=== PATIENT | male | born 1980 | race Caucasian/White ===

== ENCOUNTER 2022-03-17 11:48 | Inpatient (IN) | payer OTHER, SELFPAY ==
--- NOTE | 2022-03-17 | ECG_ITS ---
Test Reason : MED CLEARANCE Blood Pressure : / mmHG Vent. Rate : 070 BPM Atrial Rate : 070 BPM P-R Int : 128 ms QRS Dur : 078 ms QT Int : 410 ms P-R-T Axes : -16 026 016 degrees QTc Int : 442 ms Sinus rhythm with Premature atrial complexes Otherwise normal ECG No previous ECGs available Referred By: Jared Garcia Electronically Signed By:DAYANA BENDER
--- NOTE | ~2022-03-17 | XR_ITS ---
EXAMINATION: XR ANKLE, RIGHT CLINICAL INFORMATION: Fall, pain COMPARISON: None TECHNIQUE: AP, lateral, and mortise views of the right ankle. FINDINGS: The bones and soft tissues are normal. No fracture. Alignment is anatomic. Joint spaces are maintained. No joint effusion. And old corticated medial malleolar avulsion fracture is noted. XR/XR ankle RT min 3V IMPRESSION: No acute fracture or subluxation of the right ankle.
--- NOTE | 2022-03-17 12:02 | ED.GENADULT ---
HPI - General Adult General Chief complaint: Psychiatric Symptoms Stated complaint: Si Time Seen by Provider: 03/17/22 12:02 Source: patient and EMS Mode of arrival: EMS Limitations: no limitations History of Present Illness HPI narrative: Patient is a 41 year old male presenting to the emergency department today after a suicide attempt on a section 12. Patient states that he is no longer suicidal however, he is very sad. Patient denies any dizziness, lightheadedness, abdominal pain, nausea, vomiting, fever, chills, blurry vision, double vision, loss of vision, chest pain, difficulty breathing, shortness of breath, back pain, night sweats, pain with urination, increased urinary frequency, increased urinary urgency, blood in his urine or stool, syncope or a near syncopal episode, recent trauma or falls, bowel incontinence, bladder incontinence, bowel retention, bladder retention, or any other complaints at this time. Onset (ago): hour(s) Severity: mild Severity scale (1-10): 3 Relieving factors: none Exacerbating factors: none Associated symptoms: denies other symptoms Treatments prior to arrival: none Related Data Home Medications Medication Instructions Recorded Confirmed albuterol sulfate 90 mcg/actuation 1 puff inhalation Q4H PRN Wheezing 03/17/22 03/17/22 aerosol inhaler omeprazole 20 mg capsule,delayed 1 cap PO BID heartburn 03/17/22 03/17/22 release Allergies Allergy/AdvReac Type Severity Reaction Status Date / Time ibuprofen [From Motrin] AdvReac Nausea and Verified 03/17/22 12:42 Vomiting Review of Systems Constitutional: Constitutional: Reports no additional constitutional complaints, Denies chills, Denies fever(s) and Denies night sweats Eyes: Eyes: Reports no additional eye complaints, Denies blurry vision, Denies change in vision, Denies diplopia, Denies eye discharge, Denies loss of vision and Denies eye pain ENT: Denies dizziness Cardiovascular: Cardiovascular: Reports no additional cardiovascular complaints, Denies chest pain, Denies lightheadedness, Denies Loss of Consciousness and Denies dyspnea Respiratory: Respiratory: Reports no additional respiratory complaints and Denies dyspnea Gastrointestinal: Gastrointestinal: Reports no additional gastrointestinal complaints, Denies abdominal pain, Denies melena, Denies hematochezia, Denies change in bowel habits and Denies change in stool character Genitourinary: Genitourinary: Reports no additional male genitourinary complaints, Denies hematuria, Denies oliguria, Denies difficulty urinating, Denies dysuria, Denies urinary frequency, Denies urinary hesitancy, Denies urinary incontinence and Denies urinary urgency Musculoskeletal: Musculoskeletal: Reports no additional musculoskeletal complaints, Denies numbness and Denies tingling Neurologic: Denies dizziness, Denies loss of vision, Denies numbness and Denies tingling Psychiatric: Psychiatric: Reports depression Endocrine: Endocrine: Reports no additional endocrine complaints Hematologic/Lymphatic: Hematologic/Lymphatic: Reports no additional hematologic/lymphatic complaints Allergic/Immunologic: Allergic/Immunologic: Reports no additional allergic/immunologic complaints PMFSH Past Medical History Attestation statement: The following information was validated with the patient. Source: old records reviewed Social History Social History Alcohol intake: current Alcohol intake frequency: holidays/special occasions only Patient Tobacco Use Status: Current everyday Tobacco user Use of substances other than those prescribed or required for medical reasons: Yes Substance Use Type: Crack/Cocaine Advance Directives: No Physical Exam ED Vital Signs: Vital Signs - 24 hr 03/17/22 12:04 03/17/22 13:58 Temperature 97.8 F Pulse Rate 102 H Respiratory Rate 16 16 Blood Pressure 141/87 H Pulse Oximetry 95 Oxygen Delivery Method Room Air BMI result Body Mass Index 30.8 Const General: cooperative, no acute distress, alert and awake Nutritional Appearance: well nourished Orientation/consciousness: patient oriented x3 Limitations: no limitations [facility] Head: Yes normal to inspection and Yes atraumatic Ears: hearing grossly normal bilaterally and external ears normal General nose exam: Normal external nose present, no nasal discharge noted and no epistaxis Face and sinus: Yes normal facial exam, No abrasion and No laceration Mouth: Normal oral and palatal mucosa present, no drooling and no muffled voice Eyes General: appearance normal, both eyes and all related structures Periorbital: periorbital findings normal Eyelids: Yes eyelids normal Conjunctivae: conjunctivae normal Pupils: Equal, round and reactive pupils present EOM: EOMs intact bilaterally Neck Neck: Yes normal visual inspection, Yes full ROM and Yes no lymphadenopathy Chest Chest palpation & inspection: normal inspection of the chest Resp Effort & Inspection: normal respiratory effort and able to speak in complete sentences Auscultation: clear to auscultation bilaterally Cardio Rate: regular rate Rhythm: regular rhythm GI Inspection: Yes normal to inspection Neuro General: patient oriented x3 and moves all extremities Cranial nerves: Yes Equal, round and reactive pupils present Cognition (Neuro): normal cognition Motor exam (neuro): 5/5 motor strength present throughout Sensory Exam: Normal double simultaneous stimulation for sensation Coordination: [id number] test normal Extrem General: Yes normal to inspection, Yes full ROM and Yes capillary refill normal Psych Appearance: grossly normal Mental Status: mental status grossly normal Speech and movement: Normal speech and movement present Affect: Sad affect present Attitude: cooperative Thought process: Normal thought process present Thought content: Depressive thoughts present Insight: Good insight present (Psych) Medical Decision Making MDM Narrative Medical decision making narrative: Patient is a 41 year old male presenting to the emergency department today with depression. Patient's physical exam showed profound soundness and the patient was very tearful throughout the entire examination and interview. Patient's blood work was unremarkable. Patient did complain of some right ankle pain after my initial examination. Patient's right ankle x-ray showed no acute process. I explained my physical exam findings as well as all test results to the patient. I answered all questions asked by the patient. Patient is pending bed placement in a psychiatric facility. Patient may possibly be admitted here. Patient remains on a section 12. Differential Diagnosis Differential Diagnosis: depression, SI Medical Records Medical records reviewed: Yes I reviewed the patient's medical records. Lab Data Lab results reviewed: Yes I reviewed the patient's lab results. Result diagrams: 03/17/22 13:23 03/17/22 13:24 Labs: Lab Results 03/17/22 03/17/22 03/17/22 Range/Units 12:45 13:00 13:23 WBC 7.1 (4.8-10.8) X10*3/uL RBC 5.59 (4.60-5.80) X10*6/uL Hgb 16.7 (14.0-18.0) g/dl Hct 48.2 (42.0-52.0) % MCV 86.2 (80.0-98.0) fL MCH 29.9 (27.0-33.0) pg MCHC 34.6 (31.0-36.0) g/dl RDW 12.8 (11.0-16.0) % Plt Count 249 (160-400) X10*3/uL MPV 9.4 (9.4-12.4) fL Immature Gran % (Auto) 0.1 (0.0-0.4) % Neut % (Auto) 59.7 (45-73) % Lymph % (Auto) 32.5 (20-40) % [place] % (Auto) 6.7 (2-11) % Eos % (Auto) 0.7 (0-4) % Baso % (Auto) 0.3 (0-2) % Lymph # (Auto) 2.3 (1.2-4.9) X10*3/uL [place] # (Auto) 0.5 (0.1-1.2) X10*3/uL Eos # (Auto) 0.1 (0.0-0.4) X10*3/uL Baso # (Auto) 0.0 (0.0-0.2) X10*3/uL Abs Immat Gran (auto) 0.01 (0.00-0.03) X10*3/uL Absolute Neuts (auto) 4.3 (2.0-8.3) x10*3/uL Absolute Nucleated RBC 0.000 (0.0-0.012) X10*3/uL Nucleated RBC % (auto) 0.0 (0.0-0.2) /100WBC Sodium (135-145) mmol/L Potassium (3.3-5.1) mmol/L Chloride (96-108) mmol/L Carbon Dioxide (22-29) mmol/L Anion Gap (12-20) BUN (9-16) mg/dL Creatinine (0.5-1.4) mg/dL Estim Creat Clear Calc Estimated GFR Random Glucose (60-115) mg/dL Calcium (8.4-10.2) mg/dL Total Bilirubin (0.0-1.0) mg/dL AST (5-37) U/L ALT (0-40) U/L Alkaline Phosphatase (39-117) U/L Total Protein (6.5-8.0) g/dL Albumin (3.5-5.0) g/dL Salicylates (15-30) mg/dL Urine Opiates Screen Not Detected (Not Detect) Urine Fentanyl Screen Not Detected (Not Detect) Acetaminophen (<30) mcg/mL Ur Barbiturates Screen Not Detected (Not Detect) Ur Phencyclidine Scrn Not Detected (Not Detect) Ur Amphetamines Screen Not Detected (Not Detect) U Benzodiazepines Scrn Not Detected (Not Detect) Urine Cocaine Screen POSITIVE H (Not Detect) U Marijuana (THC) Screen Not Detected (Not Detect) Ethyl Alcohol mg/dL COVID-19 (MARIANA) Negative (Negative) COVID-19 Clin Com See Note 03/17/22 Range/Units 13:24 WBC (4.8-10.8) X10*3/uL RBC (4.60-5.80) X10*6/uL Hgb (14.0-18.0) g/dl Hct (42.0-52.0) % MCV (80.0-98.0) fL MCH (27.0-33.0) pg MCHC (31.0-36.0) g/dl RDW (11.0-16.0) % Plt Count (160-400) X10*3/uL MPV (9.4-12.4) fL Immature Gran % (Auto) (0.0-0.4) % Neut % (Auto) (45-73) % Lymph % (Auto) (20-40) % [place] % (Auto) (2-11) % Eos % (Auto) (0-4) % Baso % (Auto) (0-2) % Lymph # (Auto) (1.2-4.9) X10*3/uL [place] # (Auto) (0.1-1.2) X10*3/uL Eos # (Auto) (0.0-0.4) X10*3/uL Baso # (Auto) (0.0-0.2) X10*3/uL Abs Immat Gran (auto) (0.00-0.03) X10*3/uL Absolute Neuts (auto) (2.0-8.3) x10*3/uL Absolute Nucleated RBC (0.0-0.012) X10*3/uL Nucleated RBC % (auto) (0.0-0.2) /100WBC Sodium 137 (135-145) mmol/L Potassium 3.7 (3.3-5.1) mmol/L Chloride 101 (96-108) mmol/L Carbon Dioxide 22 (22-29) mmol/L Anion Gap 18 (12-20) BUN 7 L (9-16) mg/dL Creatinine 0.96 (0.5-1.4) mg/dL Estim Creat Clear Calc 117.4 Estimated GFR > 60 Random Glucose 133 H (60-115) mg/dL Calcium 9.4 (8.4-10.2) mg/dL Total Bilirubin 0.5 (0.0-1.0) mg/dL AST 32 (5-37) U/L ALT 44 H (0-40) U/L Alkaline Phosphatase 119 H (39-117) U/L Total Protein 8.0 (6.5-8.0) g/dL Albumin 5.1 H (3.5-5.0) g/dL Salicylates < 5.0 L (15-30) mg/dL Urine Opiates Screen (Not Detect) Urine Fentanyl Screen (Not Detect) Acetaminophen < 1 (<30) mcg/mL Ur Barbiturates Screen (Not Detect) Ur Phencyclidine Scrn (Not Detect) Ur Amphetamines Screen (Not Detect) U Benzodiazepines Scrn (Not Detect) Urine Cocaine Screen (Not Detect) U Marijuana (THC) Screen (Not Detect) Ethyl Alcohol 137 mg/dL COVID-19 (MARIANA) (Negative) COVID-19 Clin Com Imaging Data Right ankle x-ray: Attestation: I personally reviewed and interpreted this imaging study as follows: My impression: No acute process. Radiologist's impression: EXAMINATION: XR ANKLE, RIGHT CLINICAL INFORMATION: Fall, pain? COMPARISON: None? TECHNIQUE: AP, lateral, and mortise views of the right ankle. FINDINGS: The bones and soft tissues are normal. No fracture. Alignment is anatomic. Joint spaces are maintained. No joint effusion. And old corticated medial malleolar avulsion fracture is noted. XR/XR ankle RT min 3V IMPRESSION: No acute fracture or subluxation of the right ankle. Dictated By: Kenji Yates MD Signed By: Electronically signed by Kenji Yates MD 03/17/22 2823 Discharge Plan Discharge Clinical Impression: Depression, Suicidal ideation Patient Disposition: Still a Patient Prescriptions: No Action omeprazole 20 mg capsule,delayed release(DR/EC) 1 cap PO BID albuterol sulfate 90 mcg/actuation Hfa Aerosol Inhaler 1 puff INHALATION Q4H PRN (Reason: Wheezing)
[2022-03-17 12:03] VITALS: BP 150/100; PULSE 105; O2SAT 95
[2022-03-17 12:04] VITALS: BP 141/87; PULSE 102; RESP 16; TEMP 36.6; O2SAT 95; BMI 30.8
--- NOTE | 2022-03-17 12:30 | PC.NURSE ---
PT SEEN IN COMMUNITY BY Jourdan. PT IS A BED SEARCH.
[2022-03-17] MEDS: NaPROXEN 500 MG TABLET PO (12:52)
[2022-03-17] MEDS: LORazepam 1 MG TABLET 2 MG PO (12:53)
[2022-03-17 13:09] LABS: Amphetamine Screen Urine Not Detected (Not Detect); Barbiturates, Urine Not Detected (Not Detect); Benzodiazepines Screen Urine Not Detected (Not Detect); Cannabinoid Screen Urine Not Detected (Not Detect); Cocaine Screen Urine POSITIVE (Not Detect); Fentanyl, urine Not Detected (Not Detect); Opiate Screen Urine Not Detected (Not Detect); Phencyclidine Screen Urine Not Detected (Not Detect)
[2022-03-17 13:22] LABS: COVID-19 Test Negative (Negative)
[2022-03-17 13:29] LABS: MANUAL DIFF FLAG NO
[2022-03-17 13:35] LABS: Basophils Percent Auto 0.3 % (0-2); Eosinophils Absolute Auto 0.1 X10*3/uL (0.0-0.4); Eosinophils Percent Auto 0.7 % (0-4); Hematocrit 48.2 % (42.0-52.0); Hemoglobin 16.7 g/dl (14.0-18.0); Imm Gran Abs Auto 0.01 X10*3/uL (0.00-0.03); Imm Gran Pct Auto 0.1 % (0.0-0.4); Lymphocytes Absolute Auto 2.3 X10*3/uL (1.2-4.9); Lymphocytes Percent Auto 32.5 % (20-40); Mean Corpuscular HGB Conc 34.6 g/dl (31.0-36.0); Mean Corpuscular Hemoglobin 29.9 pg (27.0-33.0); Mean Corpuscular Volume 86.2 fL (80.0-98.0); Mean Platelet Volume 9.4 fL (9.4-12.4); Monocytes Absolute Auto 0.5 X10*3/uL (0.1-1.2); Monocytes Percent Auto 6.7 % (2-11); Neutrophils Absolute Auto 4.3 x10*3/uL (2.0-8.3); Neutrophils Percent Auto 59.7 % (45-73); Platelet Count 249 X10*3/uL (160-400); Red Blood Count 5.59 X10*6/uL (4.60-5.80); Red Cell Distribution Width 12.8 % (11.0-16.0); White Blood Count 7.1 X10*3/uL (4.8-10.8)
[2022-03-17 13:48] LABS: Acetaminophen LAB < 1 mcg/mL (<30); Alanine Aminotransferase 44 U/L (0-40); Albumin Level 5.1 g/dL (3.5-5.0); Alkaline Phosphatase 119 U/L (39-117); Anion Gap 18 (12-20); Aspartate Amino Transferase 32 U/L (5-37); Bilirubin Total 0.5 mg/dL (0.0-1.0); Blood Urea Nitrogen 7 mg/dL (9-16); Calcium 9.4 mg/dL (8.4-10.2); Carbon Dioxide 22 mmol/L (22-29); Chloride 101 mmol/L (96-108); Creatinine Clr Calc Pharmacy 117.4; Estimated Glomerular Filt Rate > 60; Ethanol 137 mg/dL; Glucose Random 133 mg/dL (60-115); Potassium 3.7 mmol/L (3.3-5.1); Salicylate < 5.0 mg/dL (15-30); Sodium 137 mmol/L (135-145)
[2022-03-17] MEDS: Butalb/Acetamin/Caff 50/325/40 TABLET 1 TAB PO (13:57)
[2022-03-17 13:58] VITALS: RESP 16
--- NOTE | 2022-03-17 15:01 | PHA.MEDREC ---
Pharmacy Consult ? Medication Reconciliation Pharmacy has completed the medication reconciliation. Patient reported medications. Ana Lilia Zuniga, RachelD
--- NOTE | 2022-03-17 15:02 | PC.NURSE ---
SIERRA FROM [facility] CALLED AND STATE THAT THIS PT IS TO GO TO [facility] SOMETIME TODAY.
--- NOTE | 2022-03-17 22:00 | PC.ADMIT ---
Addendum entered by Page Cruz RN 03/18/22 20:49: Pt reports using cocaine once before admission in an attempt to relieve pain. Denies other substance use, social drinking, no THC. Original Note: Pt is 41M admitted after SA by hanging, pt denies actual attempt and states he self-aborted before taking action after thinking of his and kids. He states he was feeling overwhelmed by multiple stressors at home as well as chronic pain issues. Pt is irritable, soft-spoken with minimal responses. Denies hx of inpatient psychiatric care, has an outpt counselor, and no psych meds/med provider. Pt states he does not need to be here and is upset about having to have a roommate and no TV in his room. He was provided a 3-day notice to sign and educated on how to navigate inpatient stays/legal aspects/etc. He denies SI/HI/AVH/SIB. Declined to sign VLADIMIR for PCP but did sign for , pharmacy, and counselor.
[2022-03-17 22:03] VITALS: BP 144/94; PULSE 94; RESP 18; TEMP 36.6; O2SAT 96
[2022-03-18 06:00] VITALS: BP 147/93; PULSE 83; RESP 16; TEMP 36.2; O2SAT 97
[2022-03-18] MEDS: Acetaminophen 325 MG TABLET 650 MG PO (08:44)
[2022-03-18] MEDS: Nicotine Polacrilex 2 MG GUM BUCCAL ×3 (09:07→16:42)
[2022-03-18] MEDS: Omeprazole 20 MG CAPSULE.DR PO (09:08)
--- NOTE | 2022-03-18 12:15 | P.HPPS_ITS ---
HPI Date of Service: 03/18/22 Chief Complaint: Si Sources of Information: patient interviewed, chart reviewed and crisis/core team assessment reviewed HPI Subjective Notes: Lopez Warning and Conditional Voluntary Healthcare Proxy: No Guardianship: No Medical Problems Affecting Mental Status: No Narrative: Guillermo is a 41 y.o. male who carries a dx of MDD recurrent, cocaine use disorder. He [place] [facility], accompanied by his OP therapist, on 03/17/22 due to suicidal ideation with plan to hang himself. Per [facility] crisis eval, pt did attempt to hang himself, however pt denies that he this and said he planned to but stopped himself. No imaging done in the ED, no ligature tsai. Precipitating factors include that being unable to work due to chronic pain, on SSDI. Pt uses cocaine 2x per week, last used prior to coming to the ED, utox positive for cocaine only, no alcohol abuse. I evaluate the pt this afternoon and upon interview he reports he is at the hospital due to SI with a plan to hang himself, however says he thought of his son age 3 and stopped himself. Pt reports long hx of depression since childhood, says sx are intermittent and I feel good now. Identifies precipitating factors as missing his oldest kids, has not seen them in 3 years, as they live in [place], [place] with their bio mom. Also says he is bored, always home. Pt endorses anxiety, I got anxiety all the time, hx of panic attacks, unable to identify triggers. Pt denies agitation or aggression other than irritability if he does not have a cigarette. Hx of using Chantix with success x 2-3 months. Says sleep is poor due to chronic pain, i.e. fibromyalgia, arthritis, neck spasms. During the day his energy depends on his activity level. Pt says he does not like medication and will sniff cocaine when im in pain to numb my body. Past Psychiatric History: -Pt has OP psych services, therapist is Anoop Tejeda at [facility]. No psych provider. -Past med trials: gabapentin (lack of efficacy) -Hx of IPLOC at [facility] in 1997 for depression Medical Evaluation Reviewed: Yes [facility] Narrative: -Pt has chronic pain due to neuropathy, neck spasms, fibromyalgia, arthritis, a herniated disc in his back, hx of pancreatic surgery (?), and a recent sprained ankle.? Family History: -Depression. Social History: -Pt has three kids with his current of 17 yrs (she is a nu rse), and two children with another woman. -Has SSDI, in past worked as a link, construction, atv mechanic Substance History: -Cocaine: Pt uses 2x/week via insufflation, last used 03/17/2022 -Alcohol: social use Diagnostics Vital Signs (24Hr): Vital Signs - 24 hr 03/17/22 13:58 03/17/22 22:03 Temperature 97.9 F Pulse Rate 94 Respiratory Rate 16 18 Blood Pressure 144/94 H Pulse Oximetry 96 Oxygen Delivery Method Room Air BMI result Body Mass Index 30.8 Labs Results: 03/17/22 13:23 03/17/22 13:24 Labs: Laboratory Results - last 48 hr 03/17/22 03/17/22 03/17/22 12:45 13:00 13:23 WBC 7.1 RBC 5.59 Hgb 16.7 Hct 48.2 MCV 86.2 MCH 29.9 MCHC 34.6 RDW 12.8 Plt Count 249 MPV 9.4 Immature Gran % (Auto) 0.1 Neut % (Auto) 59.7 Lymph % (Auto) 32.5 [place] % (Auto) 6.7 Eos % (Auto) 0.7 Baso % (Auto) 0.3 Lymph # (Auto) 2.3 [place] # (Auto) 0.5 Eos # (Auto) 0.1 Baso # (Auto) 0.0 Abs Immat Gran (auto) 0.01 Absolute Neuts (auto) 4.3 Absolute Nucleated RBC 0.000 Nucleated RBC % (auto) 0.0 Sodium Potassium Chloride Carbon Dioxide Anion Gap BUN Creatinine Estim Creat Clear Calc Estimated GFR Random Glucose Calcium Total Bilirubin AST ALT Alkaline Phosphatase Total Protein Albumin Salicylates Urine Opiates Screen Not Detected Urine Fentanyl Screen Not Detected Acetaminophen Ur Barbiturates Screen Not Detected Ur Phencyclidine Scrn Not Detected Ur Amphetamines Screen Not Detected U Benzodiazepines Scrn Not Detected Urine Cocaine Screen POSITIVE H U Marijuana (THC) Screen Not Detected Ethyl Alcohol COVID-19 ([facility]) Negative COVID-19 Clin Com See Note 03/17/22 13:24 WBC RBC Hgb Hct MCV MCH MCHC RDW Plt Count MPV Immature Gran % (Auto) Neut % (Auto) Lymph % (Auto) [place] % (Auto) Eos % (Auto) Baso % (Auto) Lymph # (Auto) [place] # (Auto) Eos # (Auto) Baso # (Auto) Abs Immat Gran (auto) Absolute Neuts (auto) Absolute Nucleated RBC Nucleated RBC % (auto) Sodium 137 Potassium 3.7 Chloride 101 Carbon Dioxide 22 Anion Gap 18 BUN 7 L Creatinine 0.96 Estim Creat Clear Calc 117.4 Estimated GFR > 60 Random Glucose 133 H Calcium 9.4 Total Bilirubin 0.5 AST 32 ALT 44 H Alkaline Phosphatase 119 H Total Protein 8.0 Albumin 5.1 H Salicylates < 5.0 L Urine Opiates Screen Urine Fentanyl Screen Acetaminophen < 1 Ur Barbiturates Screen Ur Phencyclidine Scrn Ur Amphetamines Screen U Benzodiazepines Scrn Urine Cocaine Screen U Marijuana (THC) Screen Ethyl Alcohol 137 COVID-19 ([facility]NA) COVID-19 Clin Com Imaging Radiology Impressions: ITS Impressions Ankle X-Ray 03/17/22 13:48 IMPRESSION: No acute fracture or subluxation of the right ankle. Meds/Allergies Meds Home Medications Medication Instructions Recorded Confirmed Type albuterol sulfate 90 mcg/actuation 1 puff inhalation Q4H PRN Wheezing 03/17/22 03/17/22 History aerosol inhaler omeprazole 20 mg capsule,delayed 1 cap PO BID heartburn 03/17/22 03/17/22 History release Allergies Allergies Allergy/AdvReac Type Severity Reaction Status Date / Time ibuprofen [From Motrin] AdvReac Nausea and Verified 03/17/22 12:42 Vomiting Mental Status Exam Mental Status Exam Narrative: A&O. Well groomed, casual attire, overweight. Good eye contact, attentive. No Tics or Tremors. No abnormal involuntary movements. Calm, cooperative, engaged, pleasant. Non-pressured speech, spontaneous with regular rate and rhythm, normal volume and prosody. No prolonged speech latency or dysarthria. Mood is ?better,? affect is euthymic. May be minimizing sx, however in behavioral control, appropriate, not labile. Denies SI/SIB/HI upon inquiry. Denies A/VH or delusional thought content. Thoughts are coherent, organized. No known cognitive or memory impairment. Insight/ Judgment fair and adequate. Assessment & Plan Assessment & Plan (1) MDD (major depressive disorder), recurrent episode, moderate: Status: Acute Code(s): F33.1 - Major depressive disorder, recurrent, moderate (2) Cocaine use disorder: Status: Acute Code(s): F14.10 - Cocaine abuse, uncomplicated Plan Guillermo is a 41 y.o. male who carries a dx of MDD recurrent, cocaine use disorder. He presented [place] [facility] [place], accompanied by his OP therapist, on 03/17/22 due to suicidal ideation with plan to hang himself. Per [facility] crisis eval, pt did attempt to hang himself, however pt denies that he this and said he planned to but stopped himself. No imaging done in the ED, no ligature tsai. Precipitating factors include that being unable to work due to chronic pain, on SSDI. Pt uses cocaine 2x per week, last used prior to coming to the ED, utox positive for cocaine only, no alcohol abuse. Remote hx of IPLOC for depression. No past med trials. Plan: Start trial of wellbutrin XL 150 mg QAM, as pt reports past benefit on chantix for smoking cessation and it may additionally help with sx of depression. Pt is in general opposed to medication, however he is willing to trial an antidepressant while inpatient. He is advocating for discharge, as he misses his son. Q15 min safety checks, CV Monitor response to medications. Monitor for safety in the milieu. Discharge on stabilization. Patient seen. Chart reviewed. Discussed with team. Obtain collateral contact info?as needed Patient educated on: diagnosis, medication risk/benefits, substance abuse and therapeutic strategies Reason for continued inpatient stay Substantial Risk for: med/psych decompensation
[2022-03-18 17:47] LABS: Estimated Average Glucose 117 mg/dL; Hemoglobin A1c % 5.7 %
[2022-03-18 17:50] LABS: Cholesterol 146 mg/dL; HDL Cholesterol 39 mg/dL; LDL Cholesterol Calculated 84 mg/dl; Triglycerides 116 mg/dL
[2022-03-18 18:00] VITALS: BP 119/78; PULSE 79; RESP 16; TEMP 36.6; O2SAT 99
[2022-03-18 18:12] LABS: Free T4 (Free Thyroxine) 0.82 ng/dL (0.71-1.85); Thyroid Stimulating Hormone 0.36 uIU/mL (0.32-4.0)
--- NOTE | 2022-03-19 | ECG_ITS ---
Test Reason : cp Blood Pressure : / mmHG Vent. Rate : 066 BPM Atrial Rate : 066 BPM P-R Int : 138 ms QRS Dur : 076 ms QT Int : 412 ms P-R-T Axes : 092 044 065 degrees QTc Int : 431 ms Normal sinus rhythm Nonspecific T wave abnormality Abnormal ECG When compared with ECG of 17-MAR-2022 20:11, Premature atrial complexes are no longer Present Nonspecific T wave abnormality no longer evident in Inferior leads Referred By: Cora Hayes Electronically Signed By:CRISSY MEI MD
[2022-03-19 06:00] VITALS: BP 149/94; PULSE 82; RESP 18
[2022-03-19] MEDS: Omeprazole 20 MG CAPSULE.DR PO ×2 (09:13→19:41)
[2022-03-19] MEDS: buPROPion HCl XL 150 MG TAB.ER.24H PO (09:13)
[2022-03-19] MEDS: Nicotine Polacrilex 2 MG GUM BUCCAL ×2 (09:35→16:32)
--- NOTE | 2022-03-19 10:23 | HO.PSYCHPN ---
Subjective Subjective Date of Service: 03/19/22 Reason For Visit: Si Subjective Notes: Lopez Warning and Conditional Voluntary Healthcare Proxy: No Guardianship: No Medical Problems Affecting Mental Status: No Interim History: Patient seen and discussed with team. Patient evaluated today and upon interview pt states he feels ready to discharge tomorrow. Denies SI, says I love myself, feels he needs to be with his family. Has OP therapist, Anoop zayas, wants to see him as soon as he leaves. Says he did not like wellbutrin, its making me sleepy, also noticed increased anxiety on it. Does not really want medication. Sleep is poor due to pain, does not like the hospital bed or chairs, worsens his chornic pain. In the milieu, patient is safe and appropriate in behavior. Denies SI/SIB/HI upon inquiry. Denies irritability or assaultive ideation. Says he feels safe. Medication Compliance: No Side effects from medications: Yes Attending Groups: No Review of Systems Acute medical concerns: No Medical Review of Systems: unchanged Mental Status Exam Mental Status Exam Narrative: A&O. Well groomed, casual attire, overweight. Good eye contact, attentive. No Tics or Tremors. No abnormal involuntary movements. Calm, cooperative, engaged, pleasant. Non-pressured speech, spontaneous with regular rate and rhythm, normal volume and prosody. No prolonged speech latency or dysarthria. Mood is ?okay,? anxious to discharge, affect is euthymic. May be minimizing sx, however in behavioral control, appropriate, not labile. Denies SI/SIB/HI upon inquiry. Denies A/VH or delusional thought content. Thoughts are coherent, organized. No known cognitive or memory impairment. Insight/ Judgment fair and adequate. Diagnostics Vital Signs (24Hr): Vital Signs - 24 hr 03/18/22 18:00 03/19/22 06:00 Temperature 97.9 F Pulse Rate 79 82 Respiratory Rate 16 18 Blood Pressure 119/78 149/94 H Pulse Oximetry 99 Oxygen Delivery Method Room Air BMI result Body Mass Index 30.8 Labs Results: 03/17/22 13:23 03/17/22 13:24 Labs: Laboratory Results - last 48 hr 03/17/22 03/17/22 03/17/22 12:45 13:00 13:23 WBC 7.1 RBC 5.59 Hgb 16.7 Hct 48.2 MCV 86.2 MCH 29.9 MCHC 34.6 RDW 12.8 Plt Count 249 MPV 9.4 Immature Gran % (Auto) 0.1 Neut % (Auto) 59.7 Lymph % (Auto) 32.5 [place] % (Auto) 6.7 Eos % (Auto) 0.7 Baso % (Auto) 0.3 Lymph # (Auto) 2.3 [place] # (Auto) 0.5 Eos # (Auto) 0.1 Baso # (Auto) 0.0 Abs Immat Gran (auto) 0.01 Absolute Neuts (auto) 4.3 Absolute Nucleated RBC 0.000 Nucleated RBC % (auto) 0.0 Sodium Potassium Chloride Carbon Dioxide Anion Gap BUN Creatinine Estim Creat Clear Calc Estimated GFR Random Glucose Estimat Average Glucose Hemoglobin A1c % Calcium Magnesium Total Bilirubin AST ALT Alkaline Phosphatase Total Protein Albumin Triglycerides Cholesterol LDL Cholesterol, Calc HDL Cholesterol TSH Free T4 Salicylates Urine Opiates Screen Not Detected Urine Fentanyl Screen Not Detected Acetaminophen Ur Barbiturates Screen Not Detected Ur Phencyclidine Scrn Not Detected Ur Amphetamines Screen Not Detected U Benzodiazepines Scrn Not Detected Urine Cocaine Screen POSITIVE H U Marijuana (THC) Screen Not Detected Ethyl Alcohol COVID-19 ([facility]) Negative COVID-19 Clin Com See Note 03/17/22 03/18/22 03/18/22 13:24 17:11 17:11 WBC RBC Hgb Hct MCV MCH MCHC RDW Plt Count MPV Immature Gran % (Auto) Neut % (Auto) Lymph % (Auto) [place] % (Auto) Eos % (Auto) Baso % (Auto) Lymph # (Auto) [place] # (Auto) Eos # (Auto) Baso # (Auto) Abs Immat Gran (auto) Absolute Neuts (auto) Absolute Nucleated RBC Nucleated RBC % (auto) Sodium 137 Potassium 3.7 Chloride 101 Carbon Dioxide 22 Anion Gap 18 BUN 7 L Creatinine 0.96 Estim Creat Clear Calc 117.4 Estimated GFR > 60 Random Glucose 133 H Estimat Average Glucose 117 Hemoglobin A1c % 5.7 Calcium 9.4 Magnesium 2.0 Total Bilirubin 0.5 AST 32 ALT 44 H Alkaline Phosphatase 119 H Total Protein 8.0 Albumin 5.1 H Triglycerides 116 Cholesterol 146 LDL Cholesterol, Calc 84 HDL Cholesterol 39 TSH 0.36 Free T4 0.82 Salicylates < 5.0 L Urine Opiates Screen Urine Fentanyl Screen Acetaminophen < 1 Ur Barbiturates Screen Ur Phencyclidine Scrn Ur Amphetamines Screen U Benzodiazepines Scrn Urine Cocaine Screen U Marijuana (THC) Screen Ethyl Alcohol 137 COVID-19 (MARIANA) COVID-19 Clin Com Imaging Radiology Impressions: ITS Impressions Ankle X-Ray 03/17/22 13:48 IMPRESSION: No acute fracture or subluxation of the right ankle. Medications Medications Current Medications Acetaminophen (Acetaminophen 325 Mg Tablet) 650 mg PO Q6H PRN PRN Reason: Headache/Pain Mild Scale (1-3) Last Admin: 03/18/22 08:44 Dose: 650 mg Al Hydroxide/Mg Hydroxide (Magnesium Hydrox/Alum Hydrox 30 Ml Oral.Susp) 30 ml PO Q6H PRN PRN Reason: Heartburn/Nausea Albuterol Sulfate (Albuterol Sulfate 90 Mcg 8 Gm Inhaler) 1 puff INHALE Q4H PRN PRN Reason: Wheezing Bupropion HCl (Bupropion Hcl Xl 150 Mg Tab.Er.24h) 150 mg PO DAILY [facility] Last Admin: 03/19/22 09:13 Dose: 150 mg Hydroxyzine HCl (Hydroxyzine Hcl 25 Mg Tablet) 25 mg PO Q6H PRN PRN Reason: Anxiety Magnesium Hydroxide (Milk Of Magnesia 30 Ml Oral.Susp) 30 ml PO DAILY PRN PRN Reason: Constipation Nicotine Polacrilex (Nicotine Polacrilex 2 Mg Gum) 2 mg BUCCAL Q1H PRN PRN Reason: Nicotine Cravings Last Admin: 03/19/22 09:35 Dose: 2 mg Omeprazole (Omeprazole 20 Mg Capsule.Dr) 20 mg PO BID [facility] Last Admin: 03/19/22 09:13 Dose: 20 mg Trazodone HCl (Trazodone Hcl 50 Mg Tablet) 50 mg PO BEDTIME PRN PRN Reason: Insomnia Trolamine Salicylate (Trolamine Salicylate 10 % Cream 85 Gm Tube) 1 appl TOPICAL TID PRN PRN Reason: neck pain Allergies Allergies Allergy/AdvReac Type Severity Reaction Status Date / Time ibuprofen [From Motrin] AdvReac Nausea and Verified 03/17/22 12:42 Vomiting Assessment & Plan Assessment & Plan (1) MDD (major depressive disorder), recurrent episode, moderate: Status: Acute Code(s): F33.1 - Major depressive disorder, recurrent, moderate (2) Cocaine use disorder: Status: Acute Code(s): F14.10 - Cocaine abuse, uncomplicated Plan Guillermo is a 41 y.o. male who carries a dx of MDD recurrent, cocaine use disorder. He presented to [facility] ED, accompanied by his OP therapist, on 03/17/22 due to suicidal ideation with plan to hang himself. Per [facility] crisis eval, pt did attempt to hang himself, however pt denies that he this and said he planned to but stopped himself. No imaging done in the ED, no ligature tsai. Precipitating factors include that being unable to work due to chronic pain, on SSDI. Pt uses cocaine 2x per week, last used prior to coming to the ED, utox positive for cocaine only, no alcohol abuse. Remote hx of IPLOC for depression. No past med trials. Plan: Start trial of wellbutrin XL 150 mg QAM, as pt reports past benefit on chantix for smoking cessation and it may additionally help with sx of depression. Pt is in general opposed to medication, however he is willing to trial an antidepressant while inpatient. He is advocating for discharge, as he misses his son. 03/19: Pt says he did not like how he felt on wellbutrin XL, willing to give it one more day but overall says he is not interested in psychotropic medication strategies for his depression and prefers to follow up with OP therapy. Identifies family as protective factor and misses them, advocating for discharge. No imminent safety concerns. Pt is insightful and denies SI. Q15 min safety checks, CV Monitor response to medications. Monitor for safety in the milieu. Discharge on stabilization. Patient seen. Chart reviewed. Discussed with team. Obtain collateral contact info?as needed I spent minutes with the patient and/or on the patient floor today, greater than?50% of which was spent counseling/coordinating care. Patient educated on: diagnosis and therapeutic strategies Reason for contiued inpatient stay Substantial Risk for: med/psych decompensation
[2022-03-19 18:00] VITALS: BP 122/78; PULSE 78; RESP 16; TEMP 36.1; O2SAT 99
[2022-03-19] MEDS: Acetaminophen 325 MG TABLET 650 MG PO (21:44)
[2022-03-20 06:00] VITALS: BP 124/80; PULSE 77; RESP 16; TEMP 36.6; O2SAT 98
[2022-03-20 06:29] LABS: Folate 16.8 ng/mL (> or = 4.0); Vitamin B12 399 pg/mL (200-900)
[2022-03-20] MEDS: Omeprazole 20 MG CAPSULE.DR PO (08:11)
--- NOTE | 2022-03-20 23:06 | PM.PSYDC ---
DS: Providers Provider Date of Service: 03/20/22 Date of admission: 03/17/22 20:52 Date of discharge: 03/20/22 Primary care physician: Unknown Physician Admitting clinician: Croa Hayes Attending physician on admission: Ananth Padron Attending physician on discharge: Ananth Padron Discharging clinician: Cora Hayes DS: Diagnosis Discharge Diagnosis (1) MDD (major depressive disorder), recurrent episode, moderate: Status: Inactive (2) Cocaine use disorder: Status: Inactive DS: Medications Discharge Medications Home Medications: Home Medications Medication Instructions Recorded Confirmed albuterol sulfate 90 mcg/actuation 1 puff inhalation Q4H PRN Wheezing 03/17/22 03/17/22 aerosol inhaler Previous Rx's Medication Instructions Recorded bupropion HCl 150 mg 24 hr tablet, 150 mg PO DAILY #30 tabs 03/20/22 extended release nicotine (polacrilex) 2 mg gum 2 mg buccal Q1H PRN Nicotine 03/20/22 Cravings #40 ea omeprazole 20 mg capsule,delayed 20 mg PO BID heartburn #60 caps 03/20/22 release trolamine salicylate 10 % topical 1 appl topical TID PRN neck pain 03/20/22 cream (Arthricream) #85 grams Mental Status Exam Mental Status Exam Narrative: A&O. Well groomed, casual attire, overweight. Good eye contact, attentive. No Tics or Tremors. No abnormal involuntary movements. Calm, cooperative, engaged, pleasant. Non-pressured speech, spontaneous with regular rate and rhythm, normal volume and prosody. No prolonged speech latency or dysarthria. Mood is ?better,? anxious to discharge, affect is euthymic. May be minimizing sx, however in behavioral control, appropriate, not labile. Denies SI/SIB/HI upon inquiry. Denies A/VH or delusional thought content. Thoughts are coherent, organized. No known cognitive or memory impairment. Insight/ Judgment fair and adequate. Data Data Completed and Pending Completed studies during hospitalization [Text1]: 03/17/22 03/17/22 03/17/22 12:45 13:00 13:23 WBC 7.1 RBC 5.59 Hgb 16.7 Hct 48.2 MCV 86.2 MCH 29.9 MCHC 34.6 RDW 12.8 Plt Count 249 MPV 9.4 Immature Gran % (Auto) 0.1 Neut % (Auto) 59.7 Lymph % (Auto) 32.5 [place] % (Auto) 6.7 Eos % (Auto) 0.7 Baso % (Auto) 0.3 Lymph # (Auto) 2.3 [place] # (Auto) 0.5 Eos # (Auto) 0.1 Baso # (Auto) 0.0 Abs Immat Gran (auto) 0.01 Absolute Neuts (auto) 4.3 Absolute Nucleated RBC 0.000 Nucleated RBC % (auto) 0.0 Sodium Potassium Chloride Carbon Dioxide Anion Gap BUN Creatinine Estim Creat Clear Calc Estimated GFR Random Glucose Estimat Average Glucose Hemoglobin A1c % Calcium Magnesium Total Bilirubin AST ALT Alkaline Phosphatase Total Protein Albumin Triglycerides Cholesterol LDL Cholesterol, Calc HDL Cholesterol Vitamin B12 Folate TSH Free T4 Salicylates Urine Opiates Screen Not Detected Urine Fentanyl Screen Not Detected Acetaminophen Ur Barbiturates Screen Not Detected Ur Phencyclidine Scrn Not Detected Ur Amphetamines Screen Not Detected U Benzodiazepines Scrn Not Detected Urine Cocaine Screen POSITIVE H U Marijuana (THC) Screen Not Detected Ethyl Alcohol COVID-19 ([facility]NA) Negative COVID-19 Clin Com See Note 03/17/22 03/18/22 03/18/22 13:24 17:11 17:11 WBC RBC Hgb Hct MCV MCH MCHC RDW Plt Count MPV Immature Gran % (Auto) Neut % (Auto) Lymph % (Auto) [place] % (Auto) Eos % (Auto) Baso % (Auto) Lymph # (Auto) [place] # (Auto) Eos # (Auto) Baso # (Auto) Abs Immat Gran (auto) Absolute Neuts (auto) Absolute Nucleated RBC Nucleated RBC % (auto) Sodium 137 Potassium 3.7 Chloride 101 Carbon Dioxide 22 Anion Gap 18 BUN 7 L Creatinine 0.96 Estim Creat Clear Calc 117.4 Estimated GFR > 60 Random Glucose 133 H Estimat Average Glucose 117 Hemoglobin A1c % 5.7 Calcium 9.4 Magnesium 2.0 Total Bilirubin 0.5 AST 32 ALT 44 H Alkaline Phosphatase 119 H Total Protein 8.0 Albumin 5.1 H Triglycerides 116 Cholesterol 146 LDL Cholesterol, Calc 84 HDL Cholesterol 39 Vitamin B12 Folate TSH 0.36 Free T4 0.82 Salicylates < 5.0 L Urine Opiates Screen Urine Fentanyl Screen Acetaminophen < 1 Ur Barbiturates Screen Ur Phencyclidine Scrn Ur Amphetamines Screen U Benzodiazepines Scrn Urine Cocaine Screen U Marijuana (THC) Screen Ethyl Alcohol 137 COVID-19 ([facility]) COVID-19 Clin Com 03/18/22 17:11 WBC RBC Hgb Hct MCV MCH MCHC RDW Plt Count MPV Immature Gran % (Auto) Neut % (Auto) Lymph % (Auto) [place] % (Auto) Eos % (Auto) Baso % (Auto) Lymph # (Auto) [place] # (Auto) Eos # (Auto) Baso # (Auto) Abs Immat Gran (auto) Absolute Neuts (auto) Absolute Nucleated RBC Nucleated RBC % (auto) Sodium Potassium Chloride Carbon Dioxide Anion Gap BUN Creatinine Estim Creat Clear Calc Estimated GFR Random Glucose Estimat Average Glucose Hemoglobin A1c % Calcium Magnesium Total Bilirubin AST ALT Alkaline Phosphatase Total Protein Albumin Triglycerides Cholesterol LDL Cholesterol, Calc HDL Cholesterol Vitamin B12 399 Folate 16.8 TSH Free T4 Salicylates Urine Opiates Screen Urine Fentanyl Screen Acetaminophen Ur Barbiturates Screen Ur Phencyclidine Scrn Ur Amphetamines Screen U Benzodiazepines Scrn Urine Cocaine Screen U Marijuana (THC) Screen Ethyl Alcohol COVID-19 ([facility]) COVID-19 Clin Com Imaging Diagnostic Imaging Impressions Ankle X-Ray 03/17/22 13:48 IMPRESSION: No acute fracture or subluxation of the right ankle. DS: Summary Hospital Course Hospital Course: Guillermo is a 41 y.o. male who carries a dx of MDD recurrent, cocaine use disorder. He presented to [facility] ED, accompanied by his OP therapist, on 03/17/22 due to suicidal ideation with plan to hang himself. Per [facility] crisis eval, pt did attempt to hang himself, however pt denies that he this and said he planned to but stopped himself. No imaging done in the ED, no ligature tsai. Precipitating factors include that being unable to work due to chronic pain, on SSDI. Pt uses cocaine 2x per week, last used prior to coming to the ED, utox positive for cocaine only, no alcohol abuse. Remote hx of IPLOC for depression. No past med trials. Plan: Start trial of wellbutrin XL 150 mg QAM, as pt reports past benefit on chantix for smoking cessation and it may additionally help with sx of depression. Pt is in general opposed to medication, however he is willing to trial an antidepressant while inpatient. He is advocating for discharge, as he misses his son. 03/19: Pt says he did not like how he felt on wellbutrin XL, willing to give it one more day but overall says he is not interested in psychotropic medication strategies for his depression and prefers to follow up with OP therapy. Identifies family as protective factor and misses them, advocating for discharge. No imminent safety concerns. Pt is insightful and denies SI. 03/20: Pt is not longer endorsing SI, has multiple protective factors including his child and feels has has a lot to live for. Pt has insight into his cocaine addiction, self medicates for chronic pain, he plans to be abstinent but there is no real plan in place for helping him stay sober and pt is not interested in engaging in substance abuse services. Pt denies benefit on wellbutrin XL, did not like how he felt on it, overall he is not in favor of taking psych meds. He appears at baseline functioning, denies SI/SIB and there is no imminent safety concern. Pt is advocating for discharge back home, which will be honored. Status at Discharge Functional status at discharge: independent ambulation Overall status at discharge: patient is back to baseline Time Spent with Patient Time attestation: Total time spent providing and/or coordinating discharge services: Time spent: Less than 30 minutes Discharge Plan Discharge Anticipated Discharge Date/Time: 03/20/22 09:14 Patient Disposition: Home, Self-Care Discharge Diagnosis: MDD recurrent, cocaine use disorder Referrals: Therapy: [facility] [Other] - 03/20/22 4:00 pm ([facility] will contact you this afternoon upon discharge to check-in. He will schedule you for a follow-up appointment later this week) [facility] [Other] - 1 Week (Please utilize the [facility] for support for addiction including groups and recovery coaches) [facility] [Outside] - 1 Week ([facility]. [address] [place] [id number]. [phone]. ) Discharge Medications: New nicotine (polacrilex) 2 mg Gum 2 mg buccal Q1H PRN (Reason: Nicotine Cravings) Qty: 40 0RF trolamine salicylate [Arthricream] 10 % Cream 1 appl topical TID PRN (Reason: neck pain) Qty: 85 0RF bupropion HCl 150 mg Tablet Extended Release 24 Hr 150 mg PO DAILY Qty: 30 0RF Continued albuterol sulfate 90 mcg/actuation Hfa Aerosol Inhaler 1 puff INHALATION Q4H PRN (Reason: Wheezing) Changed omeprazole 20 mg capsule,delayed release(DR/EC) 20 mg PO BID Qty: 60 0RF Discharge Orders: Discharge Order (Routine); Ordered 03/20/22 Ordered By: Cora Hayes Diet: Advance to usual diet Activity on Discharge: As tolerated Stand Alone Forms: Patient Portal Discharge page, Community Support Care Plan Goals: Continue psychiatric medications as prescribed and follow up with outpatient referrals and PCP. Health Concerns: Substance use Depression Plan of Treatment: Attend follow up appointments with OP psych services and PCP Patient will continue on psychotropic medication regimen for mood stability and sobriety Take medications as directed A one month supply of medication has been sent to your pharmacy Crisis Team if needed [phone] Call and or return if needed Assessment: Risk assessment at time of discharge:? Patient was interviewed prior to discharge and found to be fully oriented and without any SI or HI. Patient has insight and demonstrates good judgment in terms of wanting to pursue treatment. Patient is not in imminent risk of harm to self or others and has a safety plan that includes presenting to the closest ER or calling 911 if feeling unsafe.? Patient has been observed closely by nursing and unit staff throughout admission; patient has not engaged in any behaviors that suggest dangerousness to self or others and has demonstrated appropriate behaviors and impulse control Discharge Date/Time: 03/20/22 11:45
== END 2022-03-20 11:45 | disposition home or self-care (01) | DRG 885 ==
LOC: HO.ED 20:49 → HO.PM5 20:59
PROVIDERS: Physician Assistant Medical; Admitting Provider Registered Nurse; Emergency Provider Student in an Organized Health Care Education/Training Program; Visit Provider Registered Nurse
DX: F33.1 Major depressive disorder, recurrent, moderate (principal); R45.851 Suicidal ideations; M79.7 Fibromyalgia; G89.29 Other chronic pain; F17.210 Nicotine dependence, cigarettes, uncomplicated; Z20.822 Contact with and (suspected) exposure to COVID-19; Z71.6 Tobacco abuse counseling; Z88.6 Allergy status to analgesic agent; Z79.899 Other long term (current) drug therapy
CPT/HCPCS: 36415; 73610; 80053; 80061; 80143; 80179; 80307; 82077; 82607; 82746; 83036; 83735; 84439; 84443; 85025; 87635; 93005; 99285